=== PATIENT | male | born 1950 ===

== ENCOUNTER → 2017-11-27 | Outpatient (CLI) | payer MEDICARE ==
--- NOTE | 2017-11-27 11:14 | US ---
EXAM DESCRIPTION: Aorta CLINICAL HISTORY: 67 years Male, SCREENING FOR OTHER DISORDER screening for abdominal aortic aneurysm COMPARISON: None. FINDINGS: Upper abdominal aorta measures 2 cm in AP dimension in the mid abdominal aorta measures 2.1 cm. Lower abdominal aorta measures 1.9 cm in diameter. Findings suggest mild ectasia of the intrarenal abdominal aorta without significant size aneurysm. The right common iliac artery measures 1.5 cm and the left measures 1.5 cm. IMPRESSION: Mid abdominal aortic diameter of 2.1 cm. According to recommendations below, no imaging follow-up is needed. AAA Size: Follow-up Recommendation (1): 2.6 - 2.9 cm Every 5 years (2) 3.0 - 3.4 cm Every 3 years 3.5 - 3.9 cm Every 12 months 4.0 - 4.4 cm Every 12 months, vasc consult rec 4.5 - 5.4 cm Every 6 months, vasc consult rec >=5.5 cm Referral to vascular surgeon recommended (1)Based upon the Society for Vascular Surgery Guidelines: J Vasc Surg. 2009 Dec;50(4 Suppl):S2-49 (2)For aortas of max lyssa of 2.6-2.9 cm that meet criteria for AAA (>= 1.5 x proximal normal segment) Electronically signed by: Apollo Laws MD 11/27/2017 11:13 AM CDT
== END ==
LOC: RAD 09:06
PROVIDERS: ATTEND Family Medicine
DX: Z13.89 Encounter for screening for other disorder (principal)

== ENCOUNTER → 2020-02-14 | Outpatient (CLI) | payer MEDICARE | LOC: GMAE 10:47 | PROVIDERS: ATTEND Family Medicine | DX: Z12.5 Encounter for screening for malignant neoplasm of prostate (principal); I10 Essential (primary) hypertension; E78.2 Mixed hyperlipidemia | CPT/HCPCS: 84443; G0103 ==